=== PATIENT | female | born 1960 | race Caucasian/White ===

== ENCOUNTER 2017-01-09 13:34 | Emergency (ER) | payer OTHER ==
[~2017-01-09] VITALS: Ht 172.7 cm; Wt 83.9 kg
[2017-01-09] MEDS ORDERED: VALSARTAN160 M1 PO (14:00)
[2017-01-09] MEDS ORDERED: SYNTHROID112 MCG PO (14:00)
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
[2017-01-09 14:31] LABS: ABSOLUTE BASOPHIL COUNT 0 /CUMM (0.0-0.2); ABSOLUTE EOSINOPHIL COUNT 0 /CUMM (0.0-0.7); ABSOLUTE GRANULOCYTE CT 2.4 /CUMM (1.4-6.5); ABSOLUTE LYMPH COUNT 0.9 /CUMM (1.2-3.4); ABSOLUTE MONOCYTE COUNT 0.3 /CUMM (0.10-0.60); BASOPHIL % 0.4 % (0.0-2.0); EOSINOPHIL % 0.2 % (0-5); GRANULOCYTE % 66.5 % (42.2-75.2); HEMATOCRIT 41.9 % (37-47); MEAN CORPUSCULAR HGB 28.5 PG (27.0-31.0); MEAN CORPUSCULAR VOLUME 86.3 FL (81.0-99.0); MEAN PLATELET VOLUME 7.3 FL (7.4-10.4); PLATELET COUNT 233 /CUMM (130-400); RED BLOOD CELL CT 4.86 /CUMM (4.20-5.40); WHITE BLOOD CELL COUNT 3.7 /CUMM (4.8-10.8)
--- NOTE | 2017-01-09 15:09 | CT SCAN REPORT ---
EXAMINATION: CT HEAD WITHOUT CONTRAST CLINICAL INFORMATION: Evaluate for TIA/CVA. Intermittent slurred speech. Headache COMPARISON: Report of MRI 12/27/10 is unremarkable TECHNIQUE: Multidetector CT examination of the head is performed without contrast. DLP: 529 mGy-cm FINDINGS: There is no evidence of a recent intracranial hemorrhage or extra-axial collection. The midline structures are nondisplaced. The ventricles, cisterns, and sulci are within normal limits. There is no evidence of an intra-axial mass. There are no suspicious focal areas of abnormal brain attenuation. The brunner-white interface is within normal limits. There is no evidence of acute territorial infarct. There is opacification of one of the right mid ethmoid air cells and some of the posterior right sphenoid. IMPRESSION: 1. There is no evidence of a recent intracranial hemorrhage. 2. No acute infarct. 3. Nonspecific mild paranasal sinus thickening.
[2017-01-09 15:56] VITALS: BP 160/90
== END 2017-01-09 15:56 ==
LOC: ERH 13:34
PROVIDERS: Physician Assistant Surgical
DX: R29.818 Other symptoms and signs involving the nervous system (principal); I10 Essential (primary) hypertension
CPT/HCPCS: 93005; 93010